=== PATIENT | male | born 1950 | race Caucasian/White ===

== ENCOUNTER → 2017-12-12 08:45 | Outpatient (CLI) | payer MEDICARE, SELFPAY ==
[2017-12-12 10:21] LABS: PSA,Total- Diagnostic 8.85 ng/mL (0.0-4.0)
[2017-12-12 10:22] LABS: AST(SGOT) 24 U/L (15-37); Alanine Aminotransfer ALT/SGPT 44 U/L (16-61); Albumin, Serum 3.8 g/dL (3.2-5.0); Alkaline Phosphatase 72 U/L (45-117); Bilirubin, Direct 0.12 mg/dL (0.00-0.30); Cholesterol 133 mg/dL (200); Globulin 3.6 g/dL (2.2-4.2); High Density Lipoprotein 30 mg/dL; Protein, Total 7.4 g/dL (6.4-8.2); Triglycerides 111 mg/dL; Very Low Density Lipoprotein 22 mg/dL (5-40)
== END ==
PROVIDERS: Urology; Family Provider Family Medicine; PCP Family Medicine; Visit Provider Family Medicine
DX: C61 Malignant neoplasm of prostate (principal); E78.00 Pure hypercholesterolemia, unspecified
CPT/HCPCS: 36415; 80061; 80076; 84153

== ENCOUNTER → 2018-06-12 08:02 | Outpatient (CLI) | payer MEDICARE, SELFPAY ==
[2018-06-12 10:19] LABS: Absolute Lymphocyte Count 3.21 X10^3/ul (0.83-4.51); Absolute Neutrophil Count 3.3 X10^3/uL (2.0-7.7); Basophil# 0.03 X10^3/uL; Basophil% 0.4 % (0-1); Eosinophil# 0.26 X10^3/uL; Eosinophils% 3.5 % (0-5); Hematocrit 42.8 % (40-54); Lymphocyte # 3.21 X10^3/ul (4.0); Lymphocyte % 42.9 % (19-41); Mean Corp Hgb Conc 32.7 g/gl (32-36); Mean Corpuscular Hgb 28.7 pg (27.0-32.0); Mean Corpuscular Volume 87.9 fL (80-94); Mean Platelet Vol. 10.5 fl (6.2-12.0); Monocyte# 0.63 X10^3/uL; Monocyte% 8.4 % (0-10); Neutrophil # 3.34 X10^3/uL (2.7-7.7); Neutrophil % 44.5 % (47-70); Platelet Count 215 K/mm3 (150-450); RBC Distribution Width CV 13.5 % (11.6-14.6); RBC Distribution Width SD 43.1 fl (35.1-43.9); Red Blood Count 4.87 M/mm3 (4.6-6.2); White Blood Count 7.5 K/mm3 (4.4-11.0)
[2018-06-12 10:21] LABS: POSITIVE COUNT NO; POSITIVE DIFFERENTIAL NO; POSITIVE MORPHOLOGY NO
[2018-06-12 10:25] LABS: Color, Urine Yellow (Yellow); Glucose, Dipstick Normal (Normal); Ketone-Dipstick Negative (Negative); Leukocyte Esterase-Dipstick Negative /ul (Negative); Nitrite-Dipstick Negative (Negative); Occult Blood-Urine 10 /ul (Negative); Protein-Dipstick Negative (Negative); Urine Bilirubin Dipstick Negative (Negative); Urine Clarity Sl. Cloudy (Clear); Urine Urobilinogen Normal (Normal)
[2018-06-12 10:32] LABS: Vitamin D,25 Hydroxy 21.8 ng/mL (29.95-100.01)
[2018-06-12 10:34] LABS: AST(SGOT) 17 U/L (15-37); Alanine Aminotransfer ALT/SGPT 38 U/L (16-61); Albumin, Serum 3.5 g/dL (3.2-5.0); Alkaline Phosphatase 84 U/L (45-117); Anion Gap 7 (5-15); BUN 20 mg/dL (7-18); BUN/Creat Ratio 22.3 RATIO (10-20); Calcium,Total 8.2 mg/dL (8.5-10.1); Chloride 106 mmol/L (98-107); Cholesterol 120 mg/dL (200); EST Glomerular Filtration Rate 89 mL/min (>60); Est Glom Filt Rate - Afr Amer 108 mL/min (>60); Globulin 3.5 g/dL (2.2-4.2); Glucose 100 mg/dL (74-106); High Density Lipoprotein 28 mg/dL; Potassium 4.2 mmol/L (3.5-5.1); Sodium Level 139 mmol/L (136-145); Triglycerides 146 mg/dL; Very Low Density Lipoprotein 29 mg/dL (5-40)
== END ==
LOC: LAB 08:05 → MTLAB 08:05
PROVIDERS: Family Provider Family Medicine; PCP Family Medicine; Referring Provider Urology; Visit Provider Urology
DX: R97.20 Elevated prostate specific antigen [PSA] (principal); C61 Malignant neoplasm of prostate; I10 Essential (primary) hypertension; E78.5 Hyperlipidemia, unspecified; E55.9 Vitamin D deficiency, unspecified
CPT/HCPCS: 36415; 80053; 80061; 81002; 82306; 84153; 85025

== ENCOUNTER → 2018-12-15 07:50 | Outpatient (CLI) | payer MEDICARE, SELFPAY ==
[2018-12-15 10:27] LABS: AST(SGOT) 28 U/L (15-37); Alanine Aminotransfer ALT/SGPT 57 U/L (16-61); Albumin, Serum 3.5 g/dL (3.2-5.0); Alkaline Phosphatase 90 U/L (45-117); Bilirubin, Direct 0.13 mg/dL (0.00-0.30); Cholesterol 114 mg/dL (200); Globulin 3.2 g/dL (2.2-4.2); High Density Lipoprotein 24 mg/dL; PSA,Total- Diagnostic 7.41 ng/mL (0.0-4.0); Protein, Total 6.7 g/dL (6.4-8.2); Triglycerides 282 mg/dL; Very Low Density Lipoprotein 56 mg/dL (5-40)
[2018-12-15 10:31] LABS: Vitamin D,25 Hydroxy 17.8 ng/mL (29.95-100.01)
== END ==
PROVIDERS: Family Provider Family Medicine; PCP Family Medicine; Referring Provider Family Medicine; Visit Provider Family Medicine
DX: E55.9 Vitamin D deficiency, unspecified (principal); I10 Essential (primary) hypertension; E78.5 Hyperlipidemia, unspecified; C61 Malignant neoplasm of prostate
CPT/HCPCS: 36415; 80061; 80076; 82306; 84153

== ENCOUNTER → 2019-06-18 07:43 | Outpatient (CLI) | payer MEDICARE, SELFPAY ==
[2019-06-18 10:03] LABS: Absolute Lymphocyte Count 2.88 X10^3/uL (0.83-4.51); Absolute Neutrophil Count 3.8 X10^3/uL (2.0-7.7); Basophil# 0.04 X10^3/uL; Basophil% 0.5 % (0-1); Eosinophil# 0.31 X10^3/uL; Hematocrit 44.6 % (40-54); Hemoglobin 14.6 g/dL (13.0-16.5); Lymphocyte # 2.88 X10^3/ul (4.0); Lymphocyte % 37.5 % (19-41); Mean Corp Hgb Conc 32.7 g/dL (32-36); Mean Corpuscular Hgb 29.5 pg (27.0-32.0); Mean Corpuscular Volume 90.1 fL (80-94); Mean Platelet Vol. 9.6 fl (6.2-12.0); Monocyte% 7.8 % (0-10); NRBC Flagged by Analyzer 0 % (0-5); Neutrophil # 3.84 X10^3/uL (2.7-7.7); Neutrophil % 49.9 % (47-70); Platelet Count 224 K/mm3 (150-450); RBC Distribution Width CV 13.2 % (11.6-14.6); RBC Distribution Width SD 43.2 fl (35.1-43.9); Red Blood Count 4.95 M/mm3 (4.6-6.2); White Blood Count 7.7 K/mm3 (4.4-11.0)
[2019-06-18 10:08] LABS: Color, Urine Yellow (Yellow); Glucose, Dipstick Normal (Normal); Ketone-Dipstick Negative (Negative); Leukocyte Esterase-Dipstick Negative /ul (Negative); Nitrite-Dipstick Negative (Negative); Occult Blood-Urine 10 /ul (Negative); Protein-Dipstick Negative (Negative); Specific Gravity, Urine 1.025 (1.002-1.030); Urine Bilirubin Dipstick Negative (Negative); Urine Clarity Sl. Cloudy (Clear); Urine Urobilinogen Normal (Normal)
[2019-06-18 10:29] LABS: Vitamin D,25 Hydroxy 40.6 ng/mL (29.95-100.01)
[2019-06-18 10:34] LABS: ALB/GLOB Ratio 1.1 RATIO (0.9-2.4); AST(SGOT) 22 U/L (15-37); Alanine Aminotransfer ALT/SGPT 52 U/L (16-61); Albumin, Serum 3.9 g/dL (3.2-5.0); Alkaline Phosphatase 96 U/L (45-117); Anion Gap 6 (5-15); BUN 21 mg/dL (7-18); BUN/Creat Ratio 21.1 RATIO (10-20); Calcium,Total 8.3 mg/dL (8.5-10.1); Chloride 107 mmol/L (98-107); Cholesterol 101 mg/dL (200); EST Glomerular Filtration Rate 79 mL/min (>60); Est Glom Filt Rate - Afr Amer 95 mL/min (>60); Globulin 3.5 g/dL (2.2-4.2); Glucose 105 mg/dL (74-106); High Density Lipoprotein 27 mg/dL; PSA,Total- Diagnostic 7.97 ng/mL (0.0-4.0); Potassium 4.3 mmol/L (3.5-5.1); Protein, Total 7.4 g/dL (6.4-8.2); Sodium Level 138 mmol/L (136-145); Triglycerides 131 mg/dL; Very Low Density Lipoprotein 26 mg/dL (5-40)
== END ==
PROVIDERS: Family Provider Family Medicine; PCP Family Medicine; Referring Provider Family Medicine; Visit Provider Family Medicine
DX: R97.20 Elevated prostate specific antigen [PSA] (principal); C61 Malignant neoplasm of prostate; E55.9 Vitamin D deficiency, unspecified; I10 Essential (primary) hypertension; E78.5 Hyperlipidemia, unspecified; Z00.00 Encounter for general adult medical examination without abnormal findings
CPT/HCPCS: 36415; 80053; 80061; 81002; 82306; 84153; 85025

== ENCOUNTER → 2019-12-21 08:01 | Outpatient (CLI) | payer MEDICARE, SELFPAY | PROVIDERS: PCP Family Medicine; Referring Provider Urology; Visit Provider Urology | DX: C61 Malignant neoplasm of prostate (principal) | CPT/HCPCS: 36415; 84153 ==

== ENCOUNTER → 2020-06-17 09:39 | Outpatient (CLI) | payer MEDICARE, SELFPAY ==
[2020-06-17 11:58] LABS: Absolute Lymphocyte Count 2.85 X10^3/uL (0.83-4.51); Absolute Neutrophil Count 3.8 X10^3/uL (2.0-7.7); Basophil# 0.04 X10^3/uL; Basophil% 0.5 % (0-1); Eosinophil# 0.25 X10^3/uL; Eosinophils% 3.3 % (0-5); Hematocrit 45.7 % (40-54); Hemoglobin 14.3 g/dL (13.0-16.5); Lymphocyte # 2.85 X10^3/ul (4.0); Lymphocyte % 38.1 % (19-41); Mean Corp Hgb Conc 31.3 g/dL (32-36); Mean Corpuscular Hgb 29.1 pg (27.0-32.0); Mean Corpuscular Volume 92.9 fL (80-94); Mean Platelet Vol. 9.6 fl (6.2-12.0); Monocyte% 6.7 % (0-10); NRBC Flagged by Analyzer 0 % (0-5); Neutrophil # 3.82 X10^3/uL (2.7-7.7); Neutrophil % 51.1 % (47-70); Platelet Count 224 K/mm3 (150-450); RBC Distribution Width CV 13.4 % (11.6-14.6); RBC Distribution Width SD 45.6 fl (35.1-43.9); Red Blood Count 4.92 M/mm3 (4.6-6.2); White Blood Count 7.5 K/mm3 (4.4-11.0)
[2020-06-17 12:17] LABS: Vitamin D,25 Hydroxy 40.7 ng/mL
[2020-06-17 12:18] LABS: ALB/GLOB Ratio 1.1 RATIO (0.9-2.4); AST(SGOT) 25 U/L (15-37); Alanine Aminotransfer ALT/SGPT 49 U/L (16-61); Albumin, Serum 3.6 g/dL (3.2-5.0); Alkaline Phosphatase 91 U/L (45-117); Anion Gap 3 (5-15); BUN 15 mg/dL (7-18); BUN/Creat Ratio 17.3 RATIO (10-20); Calcium,Total 8.3 mg/dL (8.5-10.1); Chloride 109 mmol/L (98-107); Cholesterol 111 mg/dL (200); Creatinine, Serum 0.87 mg/dL (0.70-1.30); EST Glomerular Filtration Rate 92 mL/min (>60); Est Glom Filt Rate - Afr Amer 111 mL/min (>60); Globulin 3.4 g/dL (2.2-4.2); Glucose 96 mg/dL (74-106); High Density Lipoprotein 32 mg/dL; PSA,Total- Diagnostic 9.66 ng/mL (0.0-4.0); Potassium 4.4 mmol/L (3.5-5.1); Sodium Level 139 mmol/L (136-145); Triglycerides 109 mg/dL; Very Low Density Lipoprotein 22 mg/dL (5-40)
== END ==
PROVIDERS: PCP Family Medicine; Referring Provider Urology; Visit Provider Urology
DX: Z00.00 Encounter for general adult medical examination without abnormal findings (principal); Z12.5 Encounter for screening for malignant neoplasm of prostate; C61 Malignant neoplasm of prostate; E55.9 Vitamin D deficiency, unspecified; I10 Essential (primary) hypertension; E78.5 Hyperlipidemia, unspecified
CPT/HCPCS: 36415; 80053; 80061; 82306; 84153; 85025

== ENCOUNTER → 2020-07-29 12:00 | Outpatient (CLI) | payer MEDICARE, SELFPAY ==
--- NOTE | 2020-07-29 | IMM_PTH ---
PATIENT: SANDRA MARSHALL LOC: [facility] U#:[id number] AGE/SX: 75/M ROOM: RE07/29/[address]: Dr. Alonso Burleson MD : 1950 BED: DIS: SPEC #: [id number] RECD: 07/30/20 13:23 STATUS: TRAN RE[place] #: [id number] GAEL: 07/29/20 00:[address]: Alonso Burleson DEPT: IMMUNOHISTOCHEMISTRY RECD BY: Radhika Gilbert ENTERED: 07/30/20 13:24 SP TYPE: IMMUNO OTHR DR: Dr. Sami Garduno MD Tissues: A - PROSTATE RIGHT B - PROSTATE RIGHT Procedures: 34BE12 (add) P40 (add) 34BE12 (initial) PHYSICIAN & INSTITUTION [place] [address] SPECIMEN INFORMATION: Tissue Source: A - Right prostate, apex, core biopsy, B - Right prostate, mid, core biopsy Clinical Info: Elevated PSA Specimen Number: [id number] A & B CPT code: 88922, 17043 x3 METHODOLOGY: Deparaffinized sections of prefer/formalin-fixed tissue or PAP/DQ stained slides are incubated with monoclonal/polyclonal antibodies/oligonucleotide probes. Localization is made via biotin free immunoperoxidase method. Appropriate controls are performed and reacted as expected. Results on target cell population are indicated in the following table: RESULTS: ANTIBODY / CLONE RESULT Block A P40 (BC28) negative 34BE12 (34BE12) negative Block B P40 (BC28) negative 34BE12 (34BE12) negative These tests were developed and their performance characteristics determined by [facility]. They may not have been cleared or approved by the U.[place]. Food and Drug Administration. The FDA has determined that such clearance or approval is not necessary. The above immunohistochemical/dualISH markers are ordered and reviewed by the Pathologist. INTERPRETATION: A. Right prostate, apex, core biopsy: Adenocarcinoma. B. Right prostate, mid, core biopsy: Adenocarcinoma. AM:yamini 07/31/20
--- NOTE | 2020-07-29 08:00 | PROSBIL_PTH ---
PATIENT: SANDRA MARSHALL LOC: [facility] U#:[id number] AGE/SX: 75/M ROOM: RE07/29/[address]: Dr. Alonso Burleson MD : 1950 BED: DIS: SPEC #: [id number] RECD: 07/29/20 10:54 STATUS: TRAN FELECIA #: [id number] GAEL: 07/29/20 08:[address]: Alonso Burleson DEPT: SURGICAL PATHOLOGY RECD BY: Norma Gaona ENTERED: 07/29/20 12:14 SP TYPE: PROST BX NAVEEN DR: Dr. Sami Garduno MD Tissues: A - PROSTATE RIGHT B - PROSTATE RIGHT C - PROSTATE RIGHT D - PROSTATE LEFT E - PROSTATE LEFT F - PROSTATE LEFT Procedures: PROSTATE BX HEADER OPERATION: Prostate biopsy PRE-OP DIAGNOSIS: Elevated PSA TISSUE SUBMITTED: A - Right apex, B - Right mid, C - Right base, D - Left apex, E - Left mid, F - Left base MICROSCOPIC DIAGNOSIS A. Right prostate, apex, core biopsy: Adenocarcinoma. [place] grade: 6 (3+3) Cores involved: 1 out of 2 Tissue involved: 5% Greatest tumor length: 1.1 mm Focal high-grade prostatic intraepithelial neoplasia (HGPIN). See comment. B. Right prostate, mid, core biopsy: Adenocarcinoma. [place] grade: 6 (3+3) Cores involved: 2 out of 2 Tissue involved: 5% Greatest tumor length: 2.5 mm See comment. C. Right prostate, base, core biopsy: Focal high-grade prostatic intraepithelial neoplasia (HGPIN). D. Left prostate, apex, core biopsy: Focal chronic inflammation. E. Left prostate, mid, core biopsy: Focal chronic inflammation. F. Left prostate, base, core biopsy: Focal chronic inflammation. AM:yamini 07/30/20 COMMENT A & B. Immunohistochemistry ([id number]) supports the above diagnosis. Case has been reviewed in consultation with Dr. Valdes who concurs with the above diagnosis. IDC:SJ MICROSCOPIC DESCRIPTION Slides are reviewed. GROSS DESCRIPTION A - Received is one container designated prostate, right apex. The specimen consists of two elongated fragments of light bethea-white soft tissue measuring 0.6 and 1 cm in length and 0.1 cm in diameter. The specimen is totally submitted in one cassette. B - Received is one container designated prostate, right mid. The specimen consists of two elongated fragments of light bethea-white soft tissue each measuring 1.1 cm in length and 0.1 cm in diameter. The specimen is totally submitted in one cassette. C - Received is one container designated prostate, right base. The specimen consists of two elongated fragments of light bethea-white soft tissue measuring 1.2 and 1.5 cm in length and 0.1 cm in diameter. The specimen is totally submitted in one cassette. D - Received is one container designated prostate, left apex. The specimen consists of two elongated fragments of light bethea-white soft tissue each measuring 1 in length and 0.1 cm in diameter. The specimen is totally submitted in one cassette. E - Received is one container designated prostate, left mid. The specimen consists of two elongated fragments of light bethea-white soft tissue measuring 0.5 and 1.5 cm in length and 0.1 cm in diameter. The specimen is totally submitted in one cassette. F - Received is one container designated prostate, left base. The specimen consists of two elongated fragments of light bethea-white soft tissue each measuring 1 cm in length and 0.1 cm in diameter. The specimen is totally submitted in one cassette. / SJ:rg 07/29/20 TC:0 CPT: G0146
== END ==
PROVIDERS: PCP Family Medicine; Referring Provider Urology; Visit Provider Urology
DX: R97.20 Elevated prostate specific antigen [PSA] (principal)
CPT/HCPCS: 88305; 88341; 88342; G0416

== ENCOUNTER → 2021-02-11 07:31 | Outpatient (CLI) | payer MEDICARE, SELFPAY ==
[2021-02-11 10:45] LABS: PSA,Total- Diagnostic 8.95 ng/mL (0.0-4.0)
== END ==
PROVIDERS: PCP Family Medicine; Referring Provider Urology; Visit Provider Urology
DX: C61 Malignant neoplasm of prostate (principal)
CPT/HCPCS: 36415; 84153

== ENCOUNTER → 2021-06-16 08:01 | Outpatient (CLI) | payer MEDICARE, SELFPAY ==
[2021-06-16 09:56] LABS: Absolute Lymphocyte Count 2.38 X10^3/uL (0.83-4.51); Absolute Neutrophil Count 3.7 X10^3/uL (2.0-7.7); Basophil# 0.02 X10^3/uL; Basophil% 0.3 % (0-1); Eosinophil# 0.27 X10^3/uL; Eosinophils% 3.9 % (0-5); Hematocrit 44.8 % (40-54); Hemoglobin 14.8 g/dL (13.0-16.5); Lymphocyte # 2.38 X10^3/ul (0.83-4.51); Mean Corpuscular Hgb 28.9 pg (27.0-32.0); Mean Corpuscular Volume 87.5 fL (80-94); Mean Platelet Vol. 9.9 fl (6.2-12.0); Monocyte# 0.58 X10^3/uL; Monocyte% 8.3 % (0-10); NRBC Flagged by Analyzer 0 % (0-5); Neutrophil # 3.73 X10^3/uL (2.7-7.7); Neutrophil % 53.1 % (47-70); Platelet Count 195 K/mm3 (150-450); RBC Distribution Width CV 13.3 % (11.6-14.6); RBC Distribution Width SD 42.6 fl (35.1-43.9); Red Blood Count 5.12 M/mm3 (4.6-6.2)
[2021-06-16 10:31] LABS: ALB/GLOB Ratio 0.9 RATIO (0.9-2.4); AST(SGOT) 25 U/L (15-37); Alanine Aminotransfer ALT/SGPT 51 U/L (16-61); Albumin, Serum 3.2 g/dL (3.2-5.0); Alkaline Phosphatase 78 U/L (45-117); Anion Gap 8 (5-15); BUN 13 mg/dL (7-18); BUN/Creat Ratio 13.7 RATIO (10-20); Calcium,Total 8.2 mg/dL (8.5-10.1); Chloride 104 mmol/L (98-107); Cholesterol 157 mg/dL (200); Creatinine, Serum 0.95 mg/dL (0.70-1.30); EST Glomerular Filtration Rate 83 mL/min (>60); Est Glom Filt Rate - Afr Amer 100 mL/min (>60); Globulin 3.7 g/dL (2.2-4.2); Glucose 109 mg/dL (74-106); High Density Lipoprotein 25 mg/dL; Protein, Total 6.9 g/dL (6.4-8.2); Sodium Level 139 mmol/L (136-145); Triglycerides 403 mg/dL
== END ==
PROVIDERS: PCP Family Medicine; Referring Provider Family Medicine; Visit Provider Family Medicine
DX: Z00.00 Encounter for general adult medical examination without abnormal findings (principal); Z12.5 Encounter for screening for malignant neoplasm of prostate; I10 Essential (primary) hypertension; E78.5 Hyperlipidemia, unspecified; E55.9 Vitamin D deficiency, unspecified
CPT/HCPCS: 36415; 80053; 80061; 82306; 84153; 85025; G0103

== ENCOUNTER → 2021-08-05 08:22 | Outpatient (CLI) | payer MEDICARE, SELFPAY | PROVIDERS: PCP Family Medicine; Referring Provider Urology; Visit Provider Urology | DX: C61 Malignant neoplasm of prostate (principal) | CPT/HCPCS: 36415; 84153 ==

== ENCOUNTER 2021-12-10 08:42 | Outpatient (CLI) | payer MEDICARE, SELFPAY | END 2021-12-10 23:59 | disposition home or self-care (01) | LOC: MTLAB 08:44 | PROVIDERS: PCP Family Medicine; Referring Provider Registered Nurse; Visit Provider Registered Nurse | DX: C61 Malignant neoplasm of prostate (principal) | CPT/HCPCS: 36415; 84153 ==

== ENCOUNTER 2021-12-16 07:51 | Outpatient (CLI) | payer MEDICARE, SELFPAY ==
[2021-12-16 10:32] LABS: Vitamin D,25 Hydroxy 56.8 ng/mL
[2021-12-16 10:47] LABS: AST(SGOT) 28 U/L (15-37); Alanine Aminotransfer ALT/SGPT 54 U/L (16-61); Albumin, Serum 3.6 g/dL (3.2-5.0); Alkaline Phosphatase 67 U/L (45-117); Anion Gap 4 (5-15); BUN 16 mg/dL (7-18); BUN/Creat Ratio 17.1 RATIO (10-20); Calcium,Total 8.6 mg/dL (8.5-10.1); Chloride 109 mmol/L (98-107); Cholesterol 134 mg/dL (200); Creatinine, Serum 0.93 mg/dL (0.70-1.30); EST Glomerular Filtration Rate 84 mL/min (>60); Est Glom Filt Rate - Afr Amer 102 mL/min (>60); Globulin 3.7 g/dL (2.2-4.2); Glucose 112 mg/dL (74-106); High Density Lipoprotein 29 mg/dL; Potassium 4.4 mmol/L (3.5-5.1); Protein, Total 7.3 g/dL (6.4-8.2); Sodium Level 140 mmol/L (136-145); Triglycerides 268 mg/dL; Very Low Density Lipoprotein 54 mg/dL (5-40)
== END 2021-12-16 23:59 | disposition home or self-care (01) ==
LOC: MTLAB 07:52
PROVIDERS: PCP Family Medicine; Referring Provider Family Medicine; Visit Provider Family Medicine
DX: E55.9 Vitamin D deficiency, unspecified (principal); E78.5 Hyperlipidemia, unspecified; I10 Essential (primary) hypertension
CPT/HCPCS: 36415; 80053; 80061; 82306

== ENCOUNTER → 2022-06-21 | Outpatient (CLI) | payer MEDICARE, SELFPAY ==
[2022-06-21 14:37] LABS: PSA,Total- Diagnostic 5.27 ng/mL (0.0-4.0)
== END | disposition home or self-care (01) ==
LOC: MTLAB 08:45
PROVIDERS: PCP Family Medicine; Visit Provider Urology
DX: C61 Malignant neoplasm of prostate (principal); Z12.5 Encounter for screening for malignant neoplasm of prostate
CPT/HCPCS: 36415; 84153; G0103

== ENCOUNTER → 2022-08-19 | Outpatient (CLI) | payer MEDICARE, SELFPAY ==
[2022-08-19 10:06] LABS: Absolute Lymphocyte Count 2.27 X10^3/uL (0.83-4.51); Absolute Neutrophil Count 5.5 X10^3/uL (2.0-7.7); Basophil# 0.05 X10^3/uL; Basophil% 0.6 % (0-1); Eosinophil# 0.32 X10^3/uL; Eosinophils% 3.6 % (0-5); Hematocrit 43.9 % (40-54); Lymphocyte # 2.27 X10^3/ul (0.83-4.51); Lymphocyte % 25.3 % (19-41); Mean Corp Hgb Conc 31.9 g/dL (32-36); Mean Corpuscular Hgb 28.6 pg (27.0-32.0); Mean Corpuscular Volume 89.8 fL (80-94); Mean Platelet Vol. 9.7 fl (6.2-12.0); Monocyte# 0.76 X10^3/uL; Monocyte% 8.5 % (0-10); NRBC Flagged by Analyzer 0 % (0-5); Neutrophil # 5.53 X10^3/uL (2.7-7.7); Neutrophil % 61.4 % (47-70); Platelet Count 211 K/mm3 (150-450); RBC Distribution Width CV 13.4 % (11.6-14.6); Red Blood Count 4.89 M/mm3 (4.6-6.2)
[2022-08-19 10:34] LABS: Vitamin D,25 Hydroxy 52.6 ng/mL
[2022-08-19 10:57] LABS: AST(SGOT) 19 U/L (15-37); Alanine Aminotransfer ALT/SGPT 36 U/L (16-61); Albumin, Serum 3.2 g/dL (3.2-5.0); Alkaline Phosphatase 72 U/L (45-117); Anion Gap 5 (5-15); BUN 21 mg/dL (7-18); Calcium,Total 8.3 mg/dL (8.5-10.1); Chloride 110 mmol/L (98-107); Cholesterol 152 mg/dL (200); Creatinine, Serum 0.87 mg/dL (0.70-1.30); EST Glomerular Filtration Rate 91 mL/min (>60); Est Glom Filt Rate - Afr Amer 110 mL/min (>60); Globulin 3.1 g/dL (2.2-4.2); Glucose 119 mg/dL (74-106); High Density Lipoprotein 29 mg/dL; PSA,Total- Diagnostic 5.47 ng/mL (0.0-4.0); Potassium 4.5 mmol/L (3.5-5.1); Protein, Total 6.3 g/dL (6.4-8.2); Sodium Level 142 mmol/L (136-145); Triglycerides 162 mg/dL; Very Low Density Lipoprotein 32 mg/dL (5-40)
== END | disposition home or self-care (01) ==
LOC: MTLAB 07:47
PROVIDERS: PCP Family Medicine; Referring Provider Family Medicine; Visit Provider Family Medicine
DX: C61 Malignant neoplasm of prostate (principal); E55.9 Vitamin D deficiency, unspecified; E78.00 Pure hypercholesterolemia, unspecified; I10 Essential (primary) hypertension
CPT/HCPCS: 36415; 80053; 80061; 82306; 84153; 85025

== ENCOUNTER → 2022-12-17 | Outpatient (CLI) | payer MEDICARE, SELFPAY ==
[2022-12-17 10:33] LABS: PSA,Total- Diagnostic 5.46 ng/mL (0.0-4.0)
== END | disposition home or self-care (01) ==
LOC: MTLAB 07:10
PROVIDERS: PCP Family Medicine; Referring Provider Urology; Visit Provider Urology
DX: C61 Malignant neoplasm of prostate (principal)
CPT/HCPCS: 36415; 84153

== ENCOUNTER → 2023-09-16 | Outpatient (CLI) | payer MEDICARE, SELFPAY ==
--- OUTSIDE RECORDS SUMMARY | 2023-09-16 09:10 | XMS RPT_ITS | CCD ---
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 Name Role Phone Guzman CAMACHO.Angel CERVANTES Primary Care Provid er Sami Colvin MD Primary Care Provider SAMI COLVIN Referring Unavailab le MARII, SAMI DELGADO Primary Care UnavailSami Uriostegui MD Primary Care Provider SAMI COLVIN Attending Unavailab le SAMI COLVIN Primary Care Unavailab le SAMI COLVIN Referring Unavailab le SAMI COLVIN Primary Care Unavailab le SAMI COLVIN Attending Unavailab le ANGEL HINDS Primary Care Unavailable SAMI COLVIN Attending Unavailab le SAMI COLVIN Primary Care Unavailab le Medications Current Medications Medication Drug Class(es) Dates Sig (Normalized) Sig (Original) Miscellaneous Medical Supply (BLOOD PRESSURE CUFF) (3 sources) Start: 02-16-2023 End: 02-16-2024 Miscellaneous Medical Supply (BLOOD PRESSURE CUFF) 1 Each as directed. 1 Each 0 02/16/2023 02/16/2024 Active Completed/Discontinued Medications Medication Drug Class(es) Dates Sig (Normalized) Sig (Original) aspirin 325 mg delayed release oral tablet (6 sources) Platelet Aggregation Inhibitor, Nonsteroidal Anti-inflammatory Drug Start: 04-20-2017 aspirin, enteric coated (ASPIRIN, ENTERIC COATED) 325 mg EC tablet Take by mouth. 0 04/20/2017 Active Problems Problem Classification Problem Date Documented Da te Episodic/Chronic Administrative/social admission (1 source) Other specified counseling; Translations: [Advance care planning] Onset: 07-25-2023 Episodic Cancer of prostate (8 sources) Malignant tumor of prostate; Translations: [Malignant neoplasm of prostate] Onset: 08-05-2021 Chronic Disorders of lipid metabolism (11 sources) Pure hypercholesterole christie; Translations: [Pure hypercholesterole christie, unspecified] Onset: 04-20-2017 Chronic Essential hypertension (13 sources) Benign hypertension; Translations: [Essential (primary) hypertension] Onset: 04-20-2017 Chronic Immunizations and screening for infectious disease (8 sources) Patient encounter status; Translations: [Encounter for immunization] Onset: 07-25-2023 Episodic Nutritional deficiencies (9 sources) Vitamin D deficiency; Translations: [Vitamin D deficiency, unspecified] Onset: 06-10-2017 Chronic Other screening for suspected conditions (not mental disorders or infectious disease) (2 sources) Encounter for screening for diseases of the blood and blood-forming organs and certain disorders involving the immune mechanism; Translations: [Encounter for screening for malignant neoplasm of prostate] Onset: 08-18-2022 Episodic Screening and history of mental health and substance abuse codes (1 source) Encounter for screening for depression; Translations: [Screening for depression] Onset: 07-25-2023 Episodic Results Test Name Value Interpretation Reference Range Facil ity Vital Signs Date Time Vital Sign Value Performing Clinician Faci robby 07-25-2023 11:15-0500 Body height 170.2 cm Sami Colvin MD Work Phone: [facility] 07-25-2023 11:15-0500 Body temperature 98.01 [degF] Sami Colvin MD Work Phone: [facility] 07-25-2023 11:15-0500 Body weight 94.12 kg Sami Colvin MD Work Phone: [facility] 07-25-2023 11:15-0500 Diastolic blood pressure 78 mm[Hg] Sami Colvin MD Work Phone: [facility] 07-25-2023 11:15-0500 Heart rate 78 /min Sami Colvin MD Work Phone: [facility] 07-25-2023 11:15-0500 Respiratory rate 17 /min Sami Colvin MD Work Phone: [facility] 07-25-2023 11:15-0500 SaO2% (BldA) [Mass fraction] 96 % Sami Colvin MD Work Phone: [facility] 07-25-2023 11:15-0500 Systolic blood pressure 132 mm[Hg] Sami Colvin MD Work Phone: [facility] 02-16-2023 10:55-0400 Body height 170.2 cm aSmi Colvin MD Work Phone: [facility] 02-16-2023 10:55-0400 Body temperature 96.91 [degF] Sami Colvin MD Work Phone: [facility] 02-16-2023 10:55-0400 Body weight 94.44 kg Sami Colvin MD Work Phone: [facility] 02-16-2023 10:55-0400 Diastolic blood pressure 72 mm[Hg] Sami Colvin MD Work Phone: [facility] 02-16-2023 10:55-0400 Heart rate 85 /min Sami Colvin MD Work Phone: [facility] 02-16-2023 10:55-0400 Respiratory rate 14 /min Sami Colvin MD Work Phone: [facility] 02-16-2023 10:55-0400 SaO2% (BldA) [Mass fraction] 95 % Sami Colvin MD Work Phone: [facility] 02-16-2023 10:55-0400 Systolic blood pressure 112 mm[Hg] Sami Colvin MD Work Phone: [facility] 08-18-2022 13:02-0500 Body height 170.2 cm Sami Colvin MD Work Phone: [facility] 08-18-2022 13:02-0500 Body temperature 97 [degF] Sami Colvin MD Work Phone: [facility] 08-18-2022 13:02-0500 Body weight 93.08 kg Sami Colvin MD Work Phone: [facility] 08-18-2022 13:02-0500 Diastolic blood pressure 76 mm[Hg] Sami Colvin MD Work Phone: [facility] 08-18-2022 13:02-0500 Heart rate 92 /min Sami Colvin MD Work Phone: [facility] 08-18-2022 13:02-0500 Respiratory rate 18 /min Sami Colvin MD Work Phone: [facility] 08-18-2022 13:02-0500 SaO2% (BldA) [Mass fraction] 98 % Sami Colvin MD Work Phone: [facility] 08-18-2022 13:02-0500 Systolic blood pressure 116 mm[Hg] Sami Colvin MD Work Phone: [facility] Encounters Encounter Date Encounter Type Care Provider Facility Start: 07-25-2023 End: 07-26-2023 ambulatory SAMI COLVIN Facility:[id number] Start: 07-25-2023 End: 07-25-2023 ambulatory SAMI COLVIN Facility:[id number] Start: 07-25-2023 Encounter for genera l adult medical examination without abnormal findings SAMI COLVIN [facility] Start: 07-25-2023 End: 07-25-2023 Patient encounter procedure Sami Colvin MD Work Phone: [facility] [place] Procedures Date Procedure Procedure Detail Performing Clinician Start: 07-25-2023 INFLUENZA VACCINE, P RSV FREE, AGE 65+ YR, HIGH DOSE, QUADRIVALENT (FLUZONE HIGH-DOSE) Sami Colvin MD Work Phone: Start: 07-25-2023 Lipid 1996 panel - S anurag or Plasma Sami Colvin MD Work Phone: Start: 12-17-2022 PSA screening Alonso Burleson MD Work Phone: Start: 08-18-2022 INFLUENZA SEASONAL QUADRIVALENT HIGH DOSE AGE 65+ Sami Colvin MD Work Phone: Plan of Treatment Date Care Activity Detail Author Start: 07-25-2028 Lipid 1996 panel - Serum or Plasma Lipid Screening [facility] Start: 02-18-2028 LIPID SCREEN LIPID SCREEN [facility] Start: 07-25-2026 Diabetes Screening Diabetes Screenin g [facility] Start: 02-17-2026 DIABETES SCREEN DIABETES SCREEN [facility] Start: 12-15-2025 LIPID SCREEN LIPID SCREEN [facility] Start: 07-25-2024 Annual PCP Team Dental Laboratory Technician breonna Disease Visit Annual PCP Team Chronic Disease Visit [facility] Start: 02-17-2024 ANNUAL PCP TEAM RETOUCHER BREONNA DISEASE VISIT ANNUAL PCP TEAM CHRONIC DISEASE VISIT [facility] Start: 02-17-2024 BP CONTROLLED (<130/80) BP CONTROLLE D (<130/80) [facility] Start: 12-16-2023 DIABETES SCREEN DIABETES SCREEN [facility] Start: 08-18-2023 ANNUAL PCP TEAM RETOUCHER BREONNA DISEASE VISIT ANNUAL PCP TEAM CHRONIC DISEASE VISIT [facility] Start: 08-18-2023 BP CONTROLLED (<130/80) BP CONTROLLE D (<130/80) [facility] Start: 04-29-2023 Covid-19 Vaccine ( season) Covid-19 Vaccine ( season) [facility] Start: 08-29-2022 ADVANCE DIRECTIVE DISCUSSION ADVANCE DIRECTIVE DISCUSSION [facility] Start: 08-29-2022 DEPRESSION ASSESSMENT DEPRESSION ASS ESSMENT [facility] Start: 08-18-2022 End: 10-18-2022 25-hydroxyvitamin D3 [Mass/volume] in Serum or Plasma VITAMIN D 25 HYDROXY Lab Routine Vitamin D deficiency Expected: 08/18/2022, Expires: 10/18/2022 [facility] Work Phone: Immunizations Immunization Date Immunization Notes Care Provider Fa cility 07-25-2023 influenza (HD-IIV4) vaccine, age 65+ yr, high dose, quadrivalent, PF (FLUZONE HIGH-DOSE) Sami Colvin MD Work Phone: [facility] 08-18-2022 influenza, high-dose , quadrivalent vaccine (FLUZONE HIGH DOSE QUADRIVALENT) Sami Colvin MD Work Phone: [facility] 06-15-2021 Influenza, injectabl e, Madin Michelle Canine Kidney, preservative free, quadrivalent Sami Colvin MD Work Phone: [facility] 06-26-2020 influenza (aIIV4) vaccine, age 65+ yr, quadrivalent, PF (FLUAD QUAD) Sami Colvin MD Work Phone: [facility] 06-09-2018 AS03 adjuvant Sami Colvin MD Work Phone: [facility] 06-10-2017 influenza, injectabl e, quadrivalent, preservative free Sami Colvin MD Work Phone: [facility] Payers Date Payer Category Payer Unknown [employer]IM[employer] H[employer] POS [id number] 2021-Present [phone] [address] [place] [address] HMO [id number] 2021 Unknown [id number] Social History Date Type Detail Facility Tobacco smoking stat us [facility] Tobacco smoking consumption unknown [facility] Start: 1950 Sex Assigned At Not on file [facility] Start: 06-11-2022 End: 06-21-2022 Exposure to SARS-CoV-2 (event) Not sure [facility] Start: 08-18-2022 End: 02-16-2023 Tobacco smoking status NHIS Ex-smoker [facility] End: 08-29-2015 History of tobacco use Current smoker [facility] End: 08-29-2015 History of tobacco use Cigarette Smoker [facility] Start: 08-18-2022 End: 02-16-2023 Tobacco use and exposure Smokeless tobacco non-user [facility] Start: 08-18-2022 End: 07-25-2023 Alcohol intake Current drinker of alcohol (finding) [facility] Start: 08-18-2022 History SDOH Alcohol Frequency 3 [facility] Start: 08-18-2022 History SDOH Alcohol Std Drinks 1 [facility] Start: 08-18-2022 History SDOH Social Connections Phone 5 [facility] Start: 08-18-2022 History SDOH Transport Med 2 [facility] Start: 08-18-2022 Alcohol Comment occassionally [facility] Start: 02-16-2023 End: 07-25-2023 Cigarettes smoked current (pack per day) - Reported 1 [facility] History of tobacco use Passive smoker [facility] Start: 02-16-2023 Education 13 [facility] Start: 02-16-2023 End: 07-25-2023 [facility] [employer] [facility] Has the [employer], or [employer] threatened to shut off services in your home in past 12Mo No [facility] Do you belong to any clubs or organizations such as jain groups, unions, fraternal or athletic groups, or school groups? Yes [facility] Are you now , , , , never or living with a partner? [facility] How often to you hav e a drink containing alcohol? 2-4 times a month [facility] How many standard dr inks containing alcohol do you have on a typical day? 1 or 2 [facility] How often do you hav e 6 or more drinks on 1 occasion? Never [facility] How hard is it for y ou to pay for the very basics like food, housing, medical care, and heating Not hard at all [facility] Do you feel stress - tense, restless, nervous, or anxious, or unable to sleep at night because your mind is troubled all the time - these days [OSQ] Not at all [facility] (I/We) worried wheth er (my/our) food would run out before (I/we) got money to buy more. Never true [facility] Start: 02-16-2023 Gender identity Identifies as male gender (finding) [facility] Start: 02-16-2023 Sexual orientation Heterosexual (fin ding) [facility] Clinical Notes 08-18-2022 to 07-25-2023 Patient Sami Torres MD - 07/25/2023 2:12 PM Tracey Venegas LPN - 07/25/2023 11:01 AM Diomedes Colvin MD - 02/20/2023 7:50 PM EDT Note Date & Type Note Facility 07-25-2023 Note HNO ID: [id number] Author: Sami Colvin MD Service: ? Author Type: Physician Type: Progress Notes Filed: 07/25/2023 2:23 PM Note Text: Subjective Claus Marshall is a 73 year old male. Claus presents today for his Medicare wellness visit Review of Systems Constitutional: Negative. HENT: Negative. Eyes: Negative. Respiratory: Negative. Cardiovascular: Negative. Gastrointestinal: Negative. Endocrine: Negative. Genitourinary: Negative. Musculoskeletal: Negative. Skin: Negative. Allergic/Immunologic: Negative. Neurological: Negative. Hematological: Negative. Psychiatric/Behavioral: Negative. PAST SURGICAL HISTORY Procedure Laterality Date EXTRACTION ERUPTED TOOTH/EXR x 4 PAST MEDICAL HISTORY Diagnosis Date Hyperlipidemia 04/20/2017 Hypertension, benign 04/20/2017 Malignant neoplasm of prostate (HCC) 08/05/2021 Vitamin D deficiency 06/10/2017 FAMILY HISTORY Problem Relation Age of Onset Cancer Mother Social History Tobacco Use Smoking status: Former Packs/day: 1.00 Years: 45.00 Additional pack years: 0.00 Total pack years: 45.00 Types: Cigarettes Quit date: 08/29/2015 Years since quittin.9 Passive exposure: Past Smokeless tobacco: Never Vaping Use Vaping Use: Never used Substance Use Topics Alcohol use: Yes Comment: occassionally Drug use: Never ALLERGIES No Known Allergies MEDICATIONS: Miscellaneous Medical Supply (BLOOD PRESSURE CUFF) 1 Each as directed. Blood Pressure Monitor 1 Each as directed. pravastatin (PRAVACHOL) 20 mg tablet Take 1 tablet by mouth daily at bedtime. lisinopril (ZESTRIL) 10 mg tablet Take 1 tablet by mouth once daily. finasteride (PROSCAR) 5 mg tablet Take 5 mg by mouth once daily. aspirin, enteric coated (ASPIRIN, ENTERIC COATED) 325 mg EC tablet Take by mouth. cholecalciferol, Vitamin D3, (VITAMIN D3) 1,250 mcg (50,000 unit) cap capsule Take 1 capsule by mouth once a week as directed Allergies, past surgical history, family history and past medical history were reviewed per this encounter. Medications were reviewed and verified. Objective BP 132/78 (BP Site: Left Arm, BP Position: Sitting, BP Cuff Size: Large Adult) Pulse 78 Temp 36.7 ?C (98 ?F) (Temporal) Resp 17 Ht 170.2 cm (5' 7 ) Wt 94.1 kg (207 lb 8 oz) SpO2 96% BMI 32.50 kg/m? Physical Exam Vitals reviewed. Constitutional: Appearance: Normal appearance. HENT: Head: Normocephalic and atraumatic. Nose: Nose normal. Eyes: Extraocular Movements: Extraocular movements intact. Pupils: Pupils are equal, round, and reactive to light. Cardiovascular: Rate and Rhythm: Normal rate and regular rhythm. Pulmonary: Effort: Pulmonary effort is normal. Breath sounds: Normal breath sounds. Abdominal: General: Bowel sounds are normal. Palpations: Abdomen is soft. Musculoskeletal: General: Normal range of motion. Cervical back: Normal range of motion and neck supple. Skin: General: Skin is warm and dry. Capillary Refill: Capillary refill takes less than 2 seconds. Neurological: General: No focal deficit present. Mental Status: He is alert and oriented to person, place, and time. Mental status is at baseline. Psychiatric: Mood and Affect: Mood normal. Behavior: Behavior normal. Assessment and Plan Encounter Diagnosis ICD-10-CM 1. Wellness examination Z00.00 2. Screening for depression Z13.31 DEPRESSION SCREENING/ASSESSMENT 3. Encounter for immunization Z23 INFLUENZA VACCINE, PRSV FREE, AGE 65+ YR, HIGH DOSE, QUADRIVALENT (FLUZONE HIGH-DOSE) 4. Advance care planning Z71.89 ADVANCE CARE PLAN DISCUSSION 5. Hypertension, essential I10 COMP METABOLIC PANEL 6. Pure hypercholesterolemia E78.00 COMP METABOLIC PANEL LIPID PANEL BASIC 7. Screening for deficiency anemia Z13.0 CBC + DIFF 8. Vitamin D deficiency E55.9 VITAMIN D 25 HYDROXY All open preventative health maintenance topics discussed with patient in detail. This includes risks and benefits regarding vaccines, cancer screening, healthy life style, and diet. Claus Marshall is a 73 year old male here for a Medicare wellness visit. Medicare Health Risk Assessment General Health Very good Exercise: Minutes/Day 30 min Exercise: Days/Week 4 days Alcohol: Daily Use 2-4 times a month Alcohol: Drinks/Day 1 or 2 Alcohol: 6 or more drinks Never Feel off balance No Concerns: Teeth/Dentures No Concerns: Sexual function No Troubled by feelings None of the above Frequency: Eating healthy diet Several days ADLs requiring help None of the above Safety precautions in home/vehicle No Smoke, vape, chews tobacco No Difficulty hearing No Difficulty seeing No Current Providers Specialists: I have reviewed specialist-related care of the patient in the medical record. Medical/Family history review Reviewed and updated problem list, medical/surgical/family/social history, medications, and allergies. Opioid use rev (more content not included)... [facility] 07-25-2023 Instructions Sami Colvin MD - 07/25/2023 2:23 PM EST Screening schedule The following prevention plan is recommended: Hepatitis C Screening Never done BP Controlled (<130/80) Never done DTaP,Tdap,Td Vaccine(1 - Tdap) Never done Colorectal Cancer Screening Never done Lung Cancer Screening Never done Shingrix Vaccine(1 of 2) Never done RSV Vaccine(1 - 1-dose 60+ series) Never done Pneumococcal Vaccine: 65+(1 - PCV) Never done Covid-19 Vaccine(2022- season) due on 04/29/2023 WHAT YOU CAN DO TO PREVENT FALLS Many falls can be prevented. By making some changes, you can lower your chances of falling. Four things YOU can do to prevent falls for you* and your caregiver 1. Begin a regular exercise program Exercise is one of the most important ways to lower your chances of falling. It makes you stronger and helps you feel better. Exercises that improve balance and coordination (like Shamir Chi) are the most helpful. Lack of exercise leads to weakness and increases your chances of falling. Ask your doctor or health care provider about the best type of exercise program for you. 2. Have your health care provider review your medicines Have your doctor or pharmacist review all the medicines you take, even zmru-zcr-uzptahn medicines. As you get older, the way medicines work in your body can change. Some medicines, or combinations of medicines, can make you sleepy or dizzy and can cause you to fall. 3. Have your vision checked Have your eyes checked by an eye doctor at least once a year. You may be wearing the wrong glasses or have a condition like glaucoma or cataracts that limits your vision. Poor vision can increase your chances of falling. 4. Make your home safer About half of all falls happen at home. To make your home safer: Remove things you can trip over (like papers, books, clothes, and shoes) from stairs and places where you walk. Remove small throw rugs or use double-sided tape to keep the rugs from slipping. Keep items you use often in cabinets you can reach easily without using a step stool. Have grab bars put in next to your toilet and in the tub or shower. Use non-slip mats in the bathtub and on shower floors. Improve the lighting in your home. As you get older, you need brighter lights to see well. Hang light-weight curtains or shades to reduce glare. Have handrails and lights put in on all staircases. Wear shoes both inside and outside the house. Avoid going barefoot or wearing slippers. For more information, contact: Centers for Disease Control and Prevention www.cdc.gov/injury * This information may not apply if you have certain medical conditions. documented in this encounter [facility] 07-25-2023 History of Presen t illness Narrative Subjective Claus Marshall is a 73 year old male. Claus presents today for his Medicare wellness visit Review of Systems Constitutional: Negative. HENT: Negative. Eyes: Negative. Respiratory: Negative. Cardiovascular: Negative. Gastrointestinal: Negative. Endocrine: Negative. Genitourinary: Negative. Musculoskeletal: Negative. Skin: Negative. Allergic/Immunologic: Negative. Neurological: Negative. Hematological: Negative. Psychiatric/Behavioral: Negative. PAST SURGICAL HISTORY Procedure Laterality Date EXTRACTION ERUPTED TOOTH/EXR x 4 PAST MEDICAL HISTORY Diagnosis Date Hyperlipidemia 04/20/2017 Hypertension, benign 04/20/2017 Malignant neoplasm of prostate (HCC) 08/05/2021 Vitamin D deficiency 06/10/2017 FAMILY HISTORY Problem Relation Age of Onset Cancer Mother Social History Tobacco Use Smoking status: Former Packs/day: 1.00 Years: 45.00 Additional pack years: 0.00 Total pack years: 45.00 Types: Cigarettes Quit date: 08/29/2015 Years since quittin.9 Passive exposure: Past Smokeless tobacco: Never Vaping Use Vaping Use: Never used Substance Use Topics Alcohol use: Yes Comment: occassionally Drug use: Never ALLERGIES No Known Allergies MEDICATIONS: Miscellaneous Medical Supply (BLOOD PRESSURE CUFF) 1 Each as directed. Blood Pressure Monitor 1 Each as directed. pravastatin (PRAVACHOL) 20 mg tablet Take 1 tablet by mouth daily at bedtime. lisinopril (ZESTRIL) 10 mg tablet Take 1 tablet by mouth once daily. finasteride (PROSCAR) 5 mg tablet Take 5 mg by mouth once daily. aspirin, enteric coated (ASPIRIN, ENTERIC COATED) 325 mg EC tablet Take by mouth. cholecalciferol, Vitamin D3, (VITAMIN D3) 1,250 mcg (50,000 unit) cap capsule Take 1 capsule by mouth once a week as directed Allergies, past surgical history, family history and past medical history were reviewed per this encounter. Medications were reviewed and verified. Objective BP 132/78 (BP Site: Left Arm, BP Position: Sitting, BP Cuff Size: Large Adult) Pulse 78 Temp 36.7 C (98 F) (Temporal) Resp 17 Ht 170.2 cm (5' 7 ) Wt 94.1 kg (207 lb 8 oz) SpO2 96% BMI 32.50 kg/m Physical Exam Vitals reviewed. Constitutional: Appearance: Normal appearance. HENT: Head: Normocephalic and atraumatic. Nose: Nose normal. Eyes: Extraocular Movements: Extraocular movements intact. Pupils: Pupils are equal, round, and reactive to light. Cardiovascular: Rate and Rhythm: Normal rate and regular rhythm. Pulmonary: Effort: Pulmonary effort is normal. Breath sounds: Normal breath sounds. Abdominal: General: Bowel sounds are normal. Palpations: Abdomen is soft. Musculoskeletal: General: Normal range of motion. Cervical back: Normal range of motion and neck supple. Skin: General: Skin is warm and dry. Capillary Refill: Capillary refill takes less than 2 seconds. Neurological: General: No focal deficit present. Mental Status: He is alert and oriented to person, place, and time. Mental status is at baseline. Psychiatric: Mood and Affect: Mood normal. Behavior: Behavior normal. Assessment and Plan Encounter Diagnosis ICD-10-CM 1. Wellness examination Z00.00 2. Screening for depression Z13.31 DEPRESSION SCREENING/ASSESSMENT 3. Encounter for immunization Z23 INFLUENZA VACCINE, PRSV FREE, AGE 65+ YR, HIGH DOSE, QUADRIVALENT (FLUZONE HIGH-DOSE) 4. Advance care planning Z71.89 ADVANCE CARE PLAN DISCUSSION 5. Hypertension, essential I10 COMP METABOLIC PANEL 6. Pure hypercholesterolemia E78.00 COMP METABOLIC PANEL LIPID PANEL BASIC 7. Screening for deficiency anemia Z13.0 CBC + DIFF 8. Vitamin D deficiency E55.9 VITAMIN D 25 HYDROXY All open preventative health maintenance topics discussed with patient in detail. This includes risks and benefits regarding vaccines, cancer screening, healthy life style, and diet. Claus Marshall is a 73 year old male here for a Medicare wellness visit. Medicare Health Risk Assessment General Health Very good Exercise: Minutes/Day 30 min Exercise: Days/Week 4 days Alcohol: Daily Use 2-4 times a month Alcohol: Drinks/Day 1 or 2 Alcohol: 6 or more drinks Never Feel off balance No Concerns: Teeth/Dentures No Concerns: Sexual function No Troubled by feelings None of the above Frequency: Eating healthy diet Several days ADLs requiring help None of the above Safety precautions in home/vehicle No Smoke, vape, chews tobacco No Difficulty hearing No Difficulty seeing No Current Providers Specialists: I have reviewed specialist-related care of the patient in the medical record. Medical/Family history review Reviewed and updated problem list, medical/surgical/family/social history, medications, and allergies. Opioid use review Opioid Medications (last 90 days) Some values may be hidden. Unless noted otherwise, only the newest values recorded on each date are displayed. Opioid Medications No data to display. Depression screening Depression Screening PHQ-2 Score 07/25/2023 0 Depression screening tool completed and reviewed. Based on score and interview, patient is not at risk for depression. Screening tool discussed with patient, and I recommended no further intervention at this time. Cognitive screening Mini Cog Score: 5 Cognitive screening reviewed and no further action needed (score 3-5) Functional Observation Was the patient's timed Up & Go test unsteady or ? 12 seconds? Yes Advance Care Planning Surrogate decision maker documented and/or advance directives scanned in chart Measurements BP 132/78 Pulse 78 Temp (Src) 98 (Temporal) Resp 17 Ht 5' 7 (1.70m) Wt 207 lb 8 oz (94.1kg) SpO2 96% BMI 32.49 kg/(m^2). Additional screenings: Hearing Screening - Comments:: NA Vision Screening - Comments:: ANNETTE Assessment/Plan Welcome to Medicare preventive visit (Z00.00) - Counseled on healthy diet and regular exercise - Fall avoidance information provided Patient in the office today for an annual Medicare Wellness exam. No refills needed today. Health Maintenance Due: Hepatitis C Screening DTaP,Tdap,Td Vaccine(1 - Tdap) Colorectal Cancer Screening Dr. Fair did it years ago Lung Cancer Screening Shingrix Vaccine(1 of 2) RSV Vaccine(1 - 1-dose 60+ series) Pneumococcal Vaccine: 65+(1 - PCV) Advance Directive Discussion done today Influenza Vaccine(1) done today Covid-19 Vaccine( season) Tracey Navas LPN July 25, 2023 11:18 AM documented in this encounter [facility] 07-25-2023 Note HNO ID: [id number] Author: Tracey Navas LPN Service: ? Author Type: LICENSED NURSE Type: Progress Notes Filed: 07/25/2023 2:23 PM Note Text: Patient in the office today for an annual Medicare Wellness exam. No refills needed today. Health Maintenance Due: Hepatitis C Screening DTaP,Tdap,Td Vaccine(1 - Tdap) Colorectal Cancer Screening Dr. Fair did it years ago Lung Cancer Screening Shingrix Vaccine(1 of 2) RSV Vaccine(1 - 1-dose 60+ series) Pneumococcal Vaccine: 65+(1 - PCV) Advance Directive Discussion done today Influenza Vaccine(1) done today Covid-19 Vaccine( season) Tracey Navas LPN July 25, 2023 11:18 AM [facility] 02-20-2023 Note HNO ID: [id number] Author: Sami Colvin MD Service: ? Author Type: Physician Type: Progress Notes Filed: 02/20/2023 7:51 PM Note Text: This note was created using [employer]. Subjective Claus Marshall is a 72 year old male. Claus presents today for follow-up for his hypertension and high cholesterol. Both are under good control on his current regimen. He has no new complaints today. Review of Systems Constitutional: Negative. HENT: Negative. Eyes: Negative. Respiratory: Negative. Cardiovascular: Negative. Gastrointestinal: Negative. Endocrine: Negative. Genitourinary: Negative. Musculoskeletal: Negative. Skin: Negative. Allergic/Immunologic: Negative. Neurological: Negative. Hematological: Negative. Psychiatric/Behavioral: Negative. Objective BP 112/72 (BP Site: Right Arm, BP Position: Sitting) Pulse 85 Temp 36.1 ?C (96.9 ?F) (Temporal) Resp 14 Ht 170.2 cm (5' 7 ) Wt 94.4 kg (208 lb 3.2 oz) SpO2 95% BMI 32.61 kg/m? Physical Exam Vitals reviewed. Constitutional: Appearance: Normal appearance. HENT: Head: Normocephalic and atraumatic. Nose: Nose normal. Eyes: Extraocular Movements: Extraocular movements intact. Pupils: Pupils are equal, round, and reactive to light. Cardiovascular: Rate and Rhythm: Normal rate and regular rhythm. Pulmonary: Effort: Pulmonary effort is normal. Breath sounds: Normal breath sounds. Abdominal: General: Bowel sounds are normal. Palpations: Abdomen is soft. Musculoskeletal: General: Normal range of motion. Cervical back: Normal range of motion and neck supple. Skin: General: Skin is warm and dry. Capillary Refill: Capillary refill takes less than 2 seconds. Neurological: General: No focal deficit present. Mental Status: He is alert and oriented to person, place, and time. Mental status is at baseline. Psychiatric: Mood and Affect: Mood normal. Behavior: Behavior normal. Assessment and Plan Encounter Diagnosis ICD-10-CM 1. Pure hypercholesterolemia E78.00 COMP METABOLIC PANEL LIPID PANEL BASIC 2. Hypertension, essential I10 COMP METABOLIC PANEL Continue present medications. Check labs as above. Follow-up in 6 months. Sami Colvin MD [facility] 02-20-2023 History of Presen t illness Narrative This note was created using [employer]. Subjective Claus Marshall is a 72 year old male. Claus presents today for follow-up for his hypertension and high cholesterol. Both are under good control on his current regimen. He has no new complaints today. Review of Systems Constitutional: Negative. HENT: Negative. Eyes: Negative. Respiratory: Negative. Cardiovascular: Negative. Gastrointestinal: Negative. Endocrine: Negative. Genitourinary: Negative. Musculoskeletal: Negative. Skin: Negative. Allergic/Immunologic: Negative. Neurological: Negative. Hematological: Negative. Psychiatric/Behavioral: Negative. Objective BP 112/72 (BP Site: Right Arm, BP Position: Sitting) Pulse 85 Temp 36.1 C (96.9 F) (Temporal) Resp 14 Ht 170.2 cm (5' 7 ) Wt 94.4 kg (208 lb 3.2 oz) SpO2 95% BMI 32.61 kg/m Physical Exam Vitals reviewed. Constitutional: Appearance: Normal appearance. HENT: Head: Normocephalic and atraumatic. Nose: Nose normal. Eyes: Extraocular Movements: Extraocular movements intact. Pupils: Pupils are equal, round, and reactive to light. Cardiovascular: Rate and Rhythm: Normal rate and regular rhythm. Pulmonary: Effort: Pulmonary effort is normal. Breath sounds: Normal breath sounds. Abdominal: General: Bowel sounds are normal. Palpations: Abdomen is soft. Musculoskeletal: General: Normal range of motion. Cervical back: Normal range of motion and neck supple. Skin: General: Skin is warm and dry. Capillary Refill: Capillary refill takes less than 2 seconds. Neurological: General: No focal deficit present. Mental Status: He is alert and oriented to person, place, and time. Mental status is at baseline. Psychiatric: Mood and Affect: Mood normal. Behavior: Behavior normal. Assessment and Plan Encounter Diagnosis ICD-10-CM 1. Pure hypercholesterolemia E78.00 COMP METABOLIC PANEL LIPID PANEL BASIC 2. Hypertension, essential I10 COMP METABOLIC PANEL Continue present medications. Check labs as above. Follow-up in 6 months. Sami Colvin MD Patient is in office today for 6 month exam. 4-5 weeks ago he took his BP at a drug store 140/118 and he kept checking it over the next few days his BP was still running a little high It was elevated like that over a period of approx 10 days Then his BP started running lower again as usual around 118/78 Starla Domingo LPN February 16, 2023 11:00 AM ' documented in this encounter [facility] 02-16-2023 Miscellaneous Notes Pharmacy called stating B/P order must say MONITOR instead of CUFF with an ICD-10 code. [facility] ORDER PENDED. Radha Nath LPN February 16, 2023 1:11 PM documented in this encounter [facility] 02-16-2023 Note HNO ID: [id number] Author: Starla Domingo LPN Service: ? Author Type: LICENSED NURSE Type: Progress Notes Filed: 02/20/2023 7:51 PM Note Text: Patient is in office today for 6 month exam. 4-5 weeks ago he took his BP at a drug store 140/118 and he kept checking it over the next few days his BP was still running a little high It was elevated like that over a period of approx 10 days Then his BP started running lower again as usual around 118/78 Starla Domingo LPN February 16, 2023 11:00 AM ' [facility] 01-25-2023 Miscellaneous Notes Patient called requesting the following refill. Requested Prescriptions Pending Prescriptions Disp Refills pravastatin (PRAVACHOL) 20 mg tablet 90 tablet 3 Sig: Take 1 tablet by mouth daily at bedtime. lisinopril (ZESTRIL) 10 mg tablet 90 tablet 3 Sig: Take 1 tablet by mouth once daily. Patient last appointment: 08/18/22 NOV 02/16/23 Patient Phone numbers: [phone] (home) [phone] (work) Request is for script(s) to be escript to pharmacy. Tahmina Teague LPN documented in this encounter [facility] 08-18-2022 Note HNO ID: [id number] Author: Sami Colvin MD Service: ? Author Type: Physician Type: Progress Notes Filed: 08/18/2022 1:53 PM Note Text: This note was created using [employer]. Subjective Claus Marshall is a 72 year old male. Claus presents today for his Medicare wellness exam Review of Systems Constitutional: Negative. HENT: Negative. Eyes: Negative. Respiratory: Negative. Cardiovascular: Negative. Gastrointestinal: Negative. Endocrine: Negative. Genitourinary: Negative. Musculoskeletal: Negative. Skin: Negative. Allergic/Immunologic: Negative. Neurological: Negative. Hematological: Negative. Psychiatric/Behavioral: Negative. Objective BP 116/76 (BP Site: Left Arm, BP Position: Sitting, BP Cuff Size: Large Adult) Pulse 92 Temp 36.1 ?C (97 ?F) (Temporal) Resp 18 Ht 170.2 cm (5' 7 ) Wt 93.1 kg (205 lb 3.2 oz) SpO2 98% BMI 32.14 kg/m? Physical Exam Vitals reviewed. Constitutional: Appearance: Normal appearance. HENT: Head: Normocephalic and atraumatic. Nose: Nose normal. Eyes: Extraocular Movements: Extraocular movements intact. Pupils: Pupils are equal, round, and reactive to light. Cardiovascular: Rate and Rhythm: Normal rate and regular rhythm. Pulmonary: Effort: Pulmonary effort is normal. Breath sounds: Normal breath sounds. Abdominal: General: Bowel sounds are normal. Palpations: Abdomen is soft. Musculoskeletal: General: Normal range of motion. Cervical back: Normal range of motion and neck supple. Skin: General: Skin is warm and dry. Capillary Refill: Capillary refill takes less than 2 seconds. Neurological: General: No focal deficit present. Mental Status: He is alert and oriented to person, place, and time. Mental status is at baseline. Psychiatric: Mood and Affect: Mood normal. Behavior: Behavior normal. Assessment and Plan Claus was seen today for medicare wellness exam. Diagnoses and all orders for this visit: Wellness examination Pure hypercholesterolemia - COMP METABOLIC PANEL; Future - LIPID PANEL BASIC; Future Hypertension, benign - COMP METABOLIC PANEL; Future Vitamin D deficiency - VITAMIN D 25 HYDROXY; Future Screening for deficiency anemia - CBC + DIFF; Future Screening PSA (prostate specific antigen) - Cancel: PSA/PROSTSPECAG SCRN; Future Malignant neoplasm of prostate (HCC) - PSA/PROSTSPECAG DIAG; Future Encounter for immunization - INFLUENZA SEASONAL QUADRIVALENT HIGH DOSE AGE 65+ Other orders - cholecalciferol, Vitamin D3, (VITAMIN D3) 1,250 mcg (50,000 unit) cap capsule; Take 1 capsule by mouth once a week as directed - DEPRESSION SCREENING/ASSESSMENT [facility] 08-18-2022 Note HNO ID: [id number] Author: Tracey Navas LPN Service: ? Author Type: LICENSED NURSE Type: Progress Notes Filed: 08/18/2022 1:53 PM Note Text: Medicare Yearly Visit PAST MEDICAL HISTORY Diagnosis Date Hyperlipidemia 04/20/2017 Hypertension, benign 04/20/2017 Malignant neoplasm of prostate (HCC) 08/05/2021 Vitamin D deficiency 06/10/2017 History reviewed. No pertinent surgical history. ALLERGIES: Patient has no known allergies. Medications reviewed: Yes FAMILY HISTORY Problem Relation Age of Onset Cancer Mother SOCIAL HISTORY: Social History Tobacco Use Smoking status: Former Types: Cigarettes Smokeless tobacco: Never Vaping Use Vaping Use: Never used Substance Use Topics Alcohol use: Yes Comment: occassionally Drug use: Never Claus gets minimal exercise. He watches his diet for sodium, low fat and low cholesterol most of the time. End of Live Planning discussed including patients advanced directive wishes: No I am willing to follow Claus's advanced directives. PHQ-2 / Depression screen He in the past two weeks denies having felt down, depressed, hopeless, or with little interest or pleasure in doing things. PHQ-2 Score: 0 Functional Ability/Safety Screen 1. Was the patient's timed Up and Go test unsteady or longer than 30 seconds? Yes 2. Does the patient need help with the phone, transportation, shopping,preparing meals, housework, laundry, medications or managing money? No 3. Does your home have rugs in the hallway, lack of grab bars in the bathroom, lack of handrails on the stairs or have poor lighting? Yes PHYSICAL EXAM BP 116/76 (BP Site: Left Arm, BP Position: Sitting, BP Cuff Size: Large Adult) Pulse 92 Temp 36.1 ?C (97 ?F) (Temporal) Resp 18 Ht 170.2 cm (5' 7 ) Wt 93.1 kg (205 lb 3.2 oz) SpO2 98% BMI 32.14 kg/m? Alert and oriented X 3: YES Body mass index is 32.14 kg/m?. [facility] 08-18-2022 History of Presen t illness Narrative This note was created using NoteWriter. Subjective Claus Marshall is a 72 year old male. Claus presents today for his Medicare wellness exam Review of Systems Constitutional: Negative. HENT: Negative. Eyes: Negative. Respiratory: Negative. Cardiovascular: Negative. Gastrointestinal: Negative. Endocrine: Negative. Genitourinary: Negative. Musculoskeletal: Negative. Skin: Negative. Allergic/Immunologic: Negative. Neurological: Negative. Hematological: Negative. Psychiatric/Behavioral: Negative. Objective BP 116/76 (BP Site: Left Arm, BP Position: Sitting, BP Cuff Size: Large Adult) Pulse 92 Temp 36.1 C (97 F) (Temporal) Resp 18 Ht 170.2 cm (5' 7 ) Wt 93.1 kg (205 lb 3.2 oz) SpO2 98% BMI 32.14 kg/m Physical Exam Vitals reviewed. Constitutional: Appearance: Normal appearance. HENT: Head: Normocephalic and atraumatic. Nose: Nose normal. Eyes: Extraocular Movements: Extraocular movements intact. Pupils: Pupils are equal, round, and reactive to light. Cardiovascular: Rate and Rhythm: Normal rate and regular rhythm. Pulmonary: Effort: Pulmonary effort is normal. Breath sounds: Normal breath sounds. Abdominal: General: Bowel sounds are normal. Palpations: Abdomen is soft. Musculoskeletal: General: Normal range of motion. Cervical back: Normal range of motion and neck supple. Skin: General: Skin is warm and dry. Capillary Refill: Capillary refill takes less than 2 seconds. Neurological: General: No focal deficit present. Mental Status: He is alert and oriented to person, place, and time. Mental status is at baseline. Psychiatric: Mood and Affect: Mood normal. Behavior: Behavior normal. Assessment and Plan Claus was seen today for medicare wellness exam. Diagnoses and all orders for this visit: Wellness examination Pure hypercholesterolemia - COMP METABOLIC PANEL; Future - LIPID PANEL BASIC; Future Hypertension, benign - COMP METABOLIC PANEL; Future Vitamin D deficiency - VITAMIN D 25 HYDROXY; Future Screening for deficiency anemia - CBC + DIFF; Future Screening PSA (prostate specific antigen) - Cancel: PSA/PROSTSPECAG SCRN; Future Malignant neoplasm of prostate (HCC) - PSA/PROSTSPECAG DIAG; Future Encounter for immunization - INFLUENZA SEASONAL QUADRIVALENT HIGH DOSE AGE 65+ Other orders - cholecalciferol, Vitamin D3, (VITAMIN D3) 1,250 mcg (50,000 unit) cap capsule; Take 1 capsule by mouth once a week as directed - DEPRESSION SCREENING/ASSESSMENT Medicare Yearly Visit PAST MEDICAL HISTORY Diagnosis Date Hyperlipidemia 04/20/2017 Hypertension, benign 04/20/2017 Malignant neoplasm of prostate (HCC) 08/05/2021 Vitamin D deficiency 06/10/2017 History reviewed. No pertinent surgical history. ALLERGIES: Patient has no known allergies. Medications reviewed: Yes FAMILY HISTORY Problem Relation Age of Onset Cancer Mother SOCIAL HISTORY: Social History Tobacco Use Smoking status: Former Types: Cigarettes Smokeless tobacco: Never Vaping Use Vaping Use: Never used Substance Use Topics Alcohol use: Yes Comment: occassionally Drug use: Never Claus gets minimal exercise. He watches his diet for sodium, low fat and low cholesterol most of the time. End of Live Planning discussed including patients advanced directive wishes: No I am willing to follow Claus's advanced directives. PHQ-2 / Depression screen He in the past two weeks denies having felt down, depressed, hopeless, or with little interest or pleasure in doing things. PHQ-2 Score: 0 Functional Ability/Safety Screen 1. Was the patient's timed Up and Go test unsteady or longer than 30 seconds? Yes 2. Does the patient need help with the phone, transportation, shopping,preparing meals, housework, laundry, medications or managing money? No 3. Does your home have rugs in the hallway, lack of grab bars in the bathroom, lack of handrails on the stairs or have poor lighting? Yes PHYSICAL EXAM BP 116/76 (BP Site: Left Arm, BP Position: Sitting, BP Cuff Size: Large Adult) Pulse 92 Temp 36.1 C (97 F) (Temporal) Resp 18 Ht 170.2 cm (5' 7 ) Wt 93.1 kg (205 lb 3.2 oz) SpO2 98% BMI 32.14 kg/m Alert and oriented X 3: YES Body mass index is 32.14 kg/m . documented in this encounter [facility] Hypertension, essential- Primary Unspecified essential hypertension [facility] [place] [facility] Diagnosis Pure hypercholesterolemia- Primary Hypertension, essential Unspecified essential hypertension [facility] [place] [facility]* Diagnosis Wellness examination- Primary Screening for depression Encounter for immunization Need for other specified prophylactic vaccination against single bacterial disease Advance care planning Other specified counseling Hypertension, essential Unspecified essential hypertension Pure hypercholesterolemia Screening for deficiency anemia Screening for other and unspecified deficiency anemia Vitamin D deficiency Unspecified vitamin D deficiency documented in this encounter [facility] Summary Purpose Family History No Family History Records FoundNo Family History Records FoundNo Family History Records Found Advance Directives No Advanced Directives Records FoundNo Advanced Directives Records FoundNo Advanced Directives Records Found Additional Source Comments (unrecognized sect ion and content) No Status Records FoundNo Status Records FoundNo Status Records Found INFORMATION SOURCE (unrecogn ized section and content) DATE CREATED AUTHOR AUTHOR'S ORGANIZ ATION 02/18/2023 [facility] DATE CREATED AUTHOR AUTHOR'S ORGANIZ ATION 07/26/2023 [facility] nter Source Comments (unrecognize d section and content) In the event this informatio n is protected by the Federal Confidentiality of Alcohol and Drug Abuse Patient Records regulations: The Federal rules restrict any use of the information to criminally investigate or prosecute any alcohol or drug abuse patient.[facility] the event this information is protected by the Federal Confidentiality of Alcohol and Drug Abuse Patient Records regulations: The Federal rules restrict any use of the information to criminally investigate or prosecute any alcohol or drug abuse patient.[facility] the event this information is protected by the Federal Confidentiality of Alcohol and Drug Abuse Patient Records regulations: The Federal rules restrict any use of the information to criminally investigate or prosecute any alcohol or drug abuse patient.[facility] the event this information is protected by the Federal Confidentiality of Alcohol and Drug Abuse Patient Records regulations: The Federal rules restrict any use of the information to criminally investigate or prosecute any alcohol or drug abuse patient.[facility] the event this information is protected by the Federal Confidentiality of Alcohol and Drug Abuse Patient Records regulations: The Federal rules restrict any use of the information to criminally investigate or prosecute any alcohol or drug abuse patient.[facility] the event this information is protected by the Federal Confidentiality of Alcohol and Drug Abuse Patient Records regulations: The Federal rules restrict any use of the information to criminally investigate or prosecute any alcohol or drug abuse patient.[facility] the event this information is protected by the Federal Confidentiality of Alcohol and Drug Abuse Patient Records regulations: The Federal rules restrict any use of the information to criminally investigate or prosecute any alcohol or drug abuse patient.[facility] Teams (unrecognized sec tion and content) Mixer Operator Vacuum Pan Salt Relationship Specialty Start Date End Date Angel Hinds, GOLD [employer]ER [employer] [address] [place] [address] PCP - General Internal Medicine 06/18/22 Mixer Operator Vacuum Pan Salt Relationship Specialty Start Date End Date Angel Hinds, GOLD MINER [employer]TAIN [employer]TER [employer] PCP - General Internal Medicine 06/18/22 Mixer Operator Vacuum Pan Salt Relationship Specialty Start Date End Date Sami Colvin MD [address] [place] [address] PCP - General Family Medicine 01/25/23 Mixer Operator Vacuum Pan Salt Relationship Specialty Start Date End Date Sami Colvin MD [address] [place] [address] PCP - General Family Medicine 01/25/23 Mixer Operator Vacuum Pan Salt Relationship Specialty Start Date End Date Sami Colvin MD [address] [place] [address] PCP - General Family Medicine 01/25/23 Mixer Operator Vacuum Pan Salt Relationship Specialty Start Date End Date Sami Colvin MD [address] [place] [address] PCP - General Family Medicine 01/25/23 Reason for Visit (unrecogniz ed section and content) Reason Onset Date Comments Refill Request 01/25/2023 Reason Comments Orders NEED NEW ORDER FOR B /P CUFF Reason Comments 6 Month Exam Chronic conditions FOR RECORDS PERTAINING TO PATIENTS WHO ARE OR HAVE BEEN ENROLLED IN A CHEMICAL DEPENDENCY/SUBSTANCEABUSE PROGRAM, SOME INFORMATION MAY BE OMITTED. This clinical summary was aggregated from multiple sources. Caution should be exercised in using it in the provision of clinical care. This summary normalizes information from multiple sources, and as a consequence, information in this document may materially change the coding, format and clinical context of patient data. In addition, data may be omitted in some cases. CLINICAL DECISIONS SHOULD BE BASED ON THE PRIMARY CLINICAL RECORDS. [facility] [employer] [facility]. provides no warranty or guarantee of the accuracy or completeness of information in this document.
[2023-09-16 10:47] LABS: PSA,Total- Diagnostic 5.34 ng/mL (0.0-4.0)
== END | disposition home or self-care (01) ==
LOC: MTLAB 08:47
PROVIDERS: PCP Family Medicine; Referring Provider Registered Nurse; Visit Provider Registered Nurse
DX: C61 Malignant neoplasm of prostate (principal)
CPT/HCPCS: 36415; 84153

== ENCOUNTER → 2024-06-14 | Outpatient (CLI) | payer MEDICARE, SELFPAY ==
--- NOTE | 2024-06-14 13:43 | RAD_ITS ---
STUDY: X-RAY - LEFT KNEE REASON FOR EXAM: Male, 74 years old. Knee injury. TECHNIQUE: 3 views of the left knee. COMPARISON: None. FINDINGS: Normal visualized distal femur. Normal visualized proximal tibia and fibula. Normal proximal tibiofibular articulation. There is no demonstrated fracture. There is mild degenerative arthrosis of the medial femorotibial compartment. Normal lateral femorotibial compartment. Normal patellofemoral articulation. There is no demonstrated joint effusion. There are atherosclerotic calcifications. RAD/Knee 3 Views IMPRESSION: Mild degenerative arthrosis of the medial femorotibial compartment. Electronically Signed: Polo Mohr MD at 14:44 EDT ,
== END | disposition home or self-care (01) ==
PROVIDERS: PCP Family Medicine; Referring Provider Nurse Practitioner Family; Visit Provider Nurse Practitioner Family
DX: S89.90XA Unspecified injury of unspecified lower leg, initial encounter (principal)
CPT/HCPCS: 73562